=== PATIENT | female | born 1950 | race Hispanic/Latino ===

== ENCOUNTER → 2017-12-07 | Outpatient (CLI) | payer MEDICARE ==
[~2017-12-07] MED LIST: AEC81 PO; AMLO5TAB2 PO; CILO100T PO; GABA-531 PO; GLIM4TAB3 PO; HYDR25TA PO; METF500T6 PO; METO25TA6 PO; SIMV20TA6 PO; TELM80TA7 PO
== END | disposition home or self-care (01) ==
LOC: SHCH 13:07
PROVIDERS: ATTEND Internal Medicine Cardiovascular Disease
DX: I10 Essential (primary) hypertension (principal); R01.1 Cardiac murmur, unspecified
CPT/HCPCS: 93306

== ENCOUNTER → 2017-12-10 | Outpatient (CLI) | payer MEDICARE ==
[~2017-12-10] MED LIST changes: +REGADENOSON 0.4 MG/5 ML PF SYG IVP SCH
== END | disposition home or self-care (01) ==
LOC: EDUNIT# 08:30 → SHCH 08:43
PROVIDERS: ATTEND Internal Medicine Cardiovascular Disease
DX: I10 Essential (primary) hypertension (principal)
CPT/HCPCS: 78452; 93017; 96374; A9500 ×2; J2785

== ENCOUNTER 2018-01-10 06:43 | Day surgery (SDC) | payer MEDICARE ==
[2018-01-08 16:29] LABS: APPEARANCE,URINE Clear (CLEAR); BASOPHILS % (AUTO) 0.8 % (0.0-5.0); BILIRUBIN,URINE Negative (NEGATIVE); COLOR,URINE Yellow (YELLOW); EOSINOPHILS % (AUTO) 5.3 % (0.0-8.0); GLUCOSE, URINE (UA) >=1000 mg/dL (NEGATIVE); HEMATOCRIT 34.7 % (36-48); KETONES,URINE Negative (NEGATIVE); LEUKOCYTE ESTERASE ,URINE Small (NEGATIVE); MEAN CORPUSCULAR HEMOGLOBIN 31.8 pg (27.0-33.0); MEAN CORPUSCULAR HGB CONC 34.3 g/dL (32.0-36.0); MEAN CORPUSCULAR VOLUME 92.6 fL (79-99); MONOCYTES % (AUTO) 7.9 % (3.0-13.0); NITRATE,URINE Negative (NEGATIVE); OCCULT BLOOD,URINE Negative (NEGATIVE); PH,URINE 6.5 (5.0-8.0); PLATELET COUNT (AUTO) 235 K/uL (130-400); PROTEIN,URINE Negative (NEGATIVE); RED BLOOD CELL COUNT(AUTO) 3.74 MIL/uL (4.00-5.50); RED CELL DISTRIBUTION WIDTH 12.7 % (11.0-15.5); WHITE BLOOD COUNT (AUTO) 7.8 K/uL (4.8-10.8)
[2018-01-08 16:31] VITALS: BP 182/77
[2018-01-08 16:35] LABS: RBC,URINE 0-1 /HPF (0-1)
[2018-01-08 16:37] LABS: BACTERIA,URINE Few /HPF (None Seen); SQUAMOUS EPITHELIAL CELL,UR Few /HPF (0-2)
[2018-01-08 16:42] LABS: CREATININE 0.9 mg/dL (0.5-1.5)
[2018-01-08 16:53] LABS: INR 0.91 (0.85-1.15); PARTIAL THROMBOPLASTIN TIME 25.7 SEC (26.3-35.5); PROTHROMBIN TIME 9.6 SEC (9.6-11.6)
[2018-01-10] VITALS (13 sets, daily range): BP systolic 108–184; BP diastolic 48–88
[~2018-01-10] VITALS: Ht 149.9 cm; Wt 67.9 kg
[~2018-01-10 06:43] MED LIST changes: +ACETAMINOPHEN 325 MG TAB PO PRN; -HYDR25TA PO; -REGADENOSON 0.4 MG/5 ML PF SYG IVP SCH; +SODIUM CHLORIDE 0.9% 500ML 500 ML IV SCH
[2018-01-10] MEDS ORDERED: ISOVUE-370 50ML VIAL IV ONE (07:08)
[2018-01-10] MEDS ORDERED: HEPARIN SODIUM 1000UNIT/ML 10ML VIAL ONE (07:08)
[2018-01-10] MEDS ORDERED: NITROGLYCERIN 5 MG/ML 10 ML VIAL IV ONE (07:08)
[2018-01-10] MEDS ORDERED: IOPAMIDOL-370 75 ML VIAL IV ONE ×2 (07:08→08:04)
[2018-01-10] MEDS ORDERED: LIDOCAINE HCL 2% 20ML ONE (07:08)
[2018-01-10] MEDS ORDERED: SODIUM BICARB 50MEQ 50ML VIAL ONE (07:08)
[2018-01-10] MEDS ORDERED: MEPERIDINE-PF 25 MG/ML SYG ONE (07:26)
[2018-01-10] MEDS ORDERED: MIDAZOLAM HCL 1 MG/ML 2ML VIAL ONE (07:27)
[2018-01-10] MEDS ORDERED: SODIUM CHLORIDE 0.9% 1000ML 1,000 ML IV ONE (07:27)
[2018-01-10] MEDS ORDERED: SODIUM CHLORIDE 0.9% 1000ML 1,000 ML IV SCH (08:05)
[2018-01-10] MEDS ORDERED: GLUCAGON 1MG KIT 1 MG ML IM PRN (08:15)
[2018-01-10] MEDS ORDERED: DEXTROSE 50%-WATER 50 ML DISP.SYRIN IV PRN (08:15)
[2018-01-10] MEDS ORDERED: INSULIN HUMULIN R 100 UNIT/ML 3ML ONE (09:02)
[2018-01-10] MEDS ORDERED: INSULIN HUMULIN R 100 UNIT/ML 3ML SQ SCH (11:30)
[2018-01-14] MEDS ORDERED: HYDR25TA PO (14:52)
== END 2018-01-10 14:15 | disposition home or self-care (01) ==
LOC: DAH 06:43
PROVIDERS: ATTEND Internal Medicine Cardiovascular Disease
DX: I25.118 Atherosclerotic heart disease of native coronary artery with other forms of angina pectoris (principal); I99.8 Other disorder of circulatory system; Z79.899 Other long term (current) drug therapy; I10 Essential (primary) hypertension; E78.5 Hyperlipidemia, unspecified; E66.9 Obesity, unspecified; Z82.49 Family history of ischemic heart disease and other diseases of the circulatory system; E11.40 Type 2 diabetes mellitus with diabetic neuropathy, unspecified; Z98.51 Tubal ligation status; Z68.30 Body mass index [BMI] 30.0-30.9, adult
CPT/HCPCS: 36415; 71045; 80048; 81001; 82948 ×2; 85025; 85610; 85730; 93005; 93458; A4606; C1760; C1894; J1644; J1815; J2175; J2250; J3490 ×3; J7030; Q9967 ×3; 99156; 99157

== ENCOUNTER 2018-01-31 10:31 | Emergency (ER) | payer MEDICARE ==
[~2018-01-31 10:31] MED LIST changes: -ACETAMINOPHEN 325 MG TAB PO PRN; -CILO100T PO; -GABA-531 PO; +HYDR25TA PO; -SODIUM CHLORIDE 0.9% 500ML 500 ML IV SCH
[2018-01-31 11:13] LABS: BASOPHILS % (AUTO) 0.8 % (0.0-5.0); EOSINOPHILS % (AUTO) 2.9 % (0.0-8.0); HEMATOCRIT 28.1 % (36-48); LYMPHOCYTES % (AUTO) 18.4 % (21.0-51.0); MEAN CORPUSCULAR HEMOGLOBIN 32.6 pg (27.0-33.0); MEAN CORPUSCULAR HGB CONC 35.6 g/dL (32.0-36.0); MEAN CORPUSCULAR VOLUME 91.6 fL (79-99); MONOCYTES % (AUTO) 7.9 % (3.0-13.0); PLATELET COUNT (AUTO) 422 K/uL (130-400); RED BLOOD CELL COUNT(AUTO) 3.07 MIL/uL (4.00-5.50); RED CELL DISTRIBUTION WIDTH 13.1 % (11.0-15.5); WHITE BLOOD COUNT (AUTO) 10.1 K/uL (4.8-10.8)
[2018-01-31 11:19] LABS: CREATININE 0.8 mg/dL (0.5-1.5); POTASSIUM 3.9 mmol/L (3.5-5.1)
[2018-01-31 11:25] LABS: ALBUMIN 2.9 g/dL (3.5-5.0); BILIRUBIN,TOTAL 0.3 mg/dL (0.2-1.0); TOTAL PROTEIN, SERUM 7.5 g/dL (6.0-8.3)
[2018-01-31] MEDS ORDERED: INSULIN HUMULIN R 100 UNIT/ML 3ML ONE (11:45)
== END 2018-01-31 13:06 | disposition home or self-care (01) ==
LOC: EDH 10:31
DX: I97.89 Other postprocedural complications and disorders of the circulatory system, not elsewhere classified (principal); E78.5 Hyperlipidemia, unspecified; I10 Essential (primary) hypertension; E11.9 Type 2 diabetes mellitus without complications; Z98.890 Other specified postprocedural states
CPT/HCPCS: 36415; 71045; 80053; 82550; 84484; 85025; 87040 ×2; 93005; 96374; 99285; J1815

== ENCOUNTER 2018-08-15 15:01 | Emergency (ER) | payer MEDICARE ==
[2018-08-15] MEDS ORDERED: CLONIDINE HCL 0.1 MG TABLET ONE (15:33)
== END 2018-08-15 16:38 | disposition home or self-care (01) ==
LOC: EDH 15:01
DX: I10 Essential (primary) hypertension (principal); E11.9 Type 2 diabetes mellitus without complications; E78.5 Hyperlipidemia, unspecified; Z79.4 Long term (current) use of insulin
CPT/HCPCS: 93005

== ENCOUNTER → 2018-08-15 | Outpatient (CLI) | payer MEDICARE ==
[~2018-08-15] MED LIST changes: -AMLO5TAB2 PO; +AMLO5TAB9 PO; +METF-444 PO; -METF500T6 PO; +TELM80TA10 PO; -TELM80TA7 PO
== END | disposition home or self-care (01) ==
LOC: RAH 13:37
PROVIDERS: ATTEND Internal Medicine Cardiovascular Disease
DX: I73.9 Peripheral vascular disease, unspecified (principal); I25.10 Atherosclerotic heart disease of native coronary artery without angina pectoris; I48.91 Unspecified atrial fibrillation; R06.02 Shortness of breath
CPT/HCPCS: 93922; 93970

== ENCOUNTER → 2018-09-09 | Outpatient (CLI) | payer MEDICARE ==
[~2018-09-09] MED LIST changes: +IOHEXOL 350 MG/ML 100ML INFUS..BTL IV ONE; +IOHEXOL-350 50ML VIAL IV ONE
== END | disposition home or self-care (01) ==
LOC: RAH 08:57
PROVIDERS: ATTEND Internal Medicine Cardiovascular Disease
DX: I70.213 Atherosclerosis of native arteries of extremities with intermittent claudication, bilateral legs (principal)
CPT/HCPCS: 75635; Q9967 ×2

== ENCOUNTER → 2022-09-05 | Outpatient (CLI) | payer OTHER, MEDICARE ==
[~2022-09-05] MED LIST changes: +AMLO-257 PO; -AMLO5TAB9 PO; -GLIM4TAB3 PO; +GLIM4TAB36 PO; -IOHEXOL 350 MG/ML 100ML INFUS..BTL IV ONE; -IOHEXOL-350 50ML VIAL IV ONE; +REGADENOSON 0.4 MG/5 ML PF SYG IVP SCH; +SIMV-43 PO; -SIMV20TA6 PO
== END | disposition home or self-care (01) ==
LOC: SHCH 08:37
PROVIDERS: ATTEND Internal Medicine Cardiovascular Disease
DX: R94.31 Abnormal electrocardiogram [ECG] [EKG] (principal); I25.10 Atherosclerotic heart disease of native coronary artery without angina pectoris; I10 Essential (primary) hypertension; Z79.899 Other long term (current) drug therapy
CPT/HCPCS: 78452; 96374; 93017; J2785; A9500 ×2

== ENCOUNTER → 2024-04-09 | Outpatient (CLI) | payer MEDICARE ==
[~2024-04-09] MED LIST changes: +CLON1PAT12 TD; -REGADENOSON 0.4 MG/5 ML PF SYG IVP SCH
== END | disposition home or self-care (01) ==
LOC: SHCH 08:58
PROVIDERS: ATTEND Internal Medicine Cardiovascular Disease
DX: I70.293 Other atherosclerosis of native arteries of extremities, bilateral legs (principal); M79.661 Pain in right lower leg
CPT/HCPCS: 93925; 93970

== ENCOUNTER → 2024-04-30 | Outpatient (CLI) | payer MEDICARE ==
[~2024-04-30] MED LIST changes: -AEC81 PO; -AMLO-257 PO; +AMLO5TAB4 PO; +AMOX1TAB16 PO; +ATOR40TA69 PO; -CLON1PAT12 TD; +CLOP-31 PO; +DOXY100C5 PO; -HYDR25TA PO; -METO25TA6 PO; +METO50 PO; +RIVA20TA PO; -SIMV-43 PO; -TELM80TA10 PO
== END | disposition home or self-care (01) ==
LOC: SHCH 09:02
PROVIDERS: ATTEND Internal Medicine Cardiovascular Disease
DX: I87.2 Venous insufficiency (chronic) (peripheral) (principal); I73.9 Peripheral vascular disease, unspecified
CPT/HCPCS: 93925; 93971

== ENCOUNTER 2024-05-14 12:11 | Inpatient (IN) | payer MEDICARE ==
[~2024-05-14] VITALS: Ht 149.9 cm; Wt 59.9 kg
[2024-05-14 13:41] LABS: BASOPHILS # (AUTO) 0.03 K/uL (0.00-0.20); BASOPHILS % (AUTO) 0.5 % (0.0-5.0); EOSINOPHILS # (AUTO) 0.33 K/uL (0.00-0.70); HEMATOCRIT 26.7 % (36-48); IMMATURE GRANULOCYTE ABSOLUTE 0.01 K/uL (0-1); LYMPHOCYTES # (AUTO) 1.5 K/uL (1.0-4.8); LYMPHOCYTES % (AUTO) 23.1 % (21.0-51.0); MEAN CORPUSCULAR HEMOGLOBIN 30.3 pg (27.0-33.0); MEAN CORPUSCULAR HGB CONC 32.6 g/dL (32.0-36.0); MONOCYTES # (AUTO) 0.6 K/uL (0.1-1.0); MONOCYTES % (AUTO) 8.4 % (3.0-13.0); NEUTROPHILS # (AUTO) 4.1 K/uL (1.8-7.7); NEUTROPHILS % (AUTO) 62.8 % (40.0-77.0); PLATELET COUNT (AUTO) 196 K/uL (130-400); RED BLOOD CELL COUNT(AUTO) 2.87 MIL/uL (4.00-5.50); RED CELL DISTRIBUTION WIDTH 12.7 % (11.0-15.5); WHITE BLOOD COUNT (AUTO) 6.6 K/uL (4.8-10.8)
[2024-05-14 13:52] LABS: CREATININE 1.3 mg/dL (0.5-1.0); POTASSIUM 3.8 mmol/L (3.5-5.1)
[2024-05-14] MEDS ORDERED: CLON0.1T PO (14:06)
[2024-05-14] MEDS ORDERED: SITA100T12 PO (14:06)
[2024-05-14] MEDS ORDERED: AMLO-257 PO (14:06)
[2024-05-14] MEDS ORDERED: guaiFENesin-DM 200/20MG 10ML PO PRN (14:30)
[2024-05-14] MEDS ORDERED: doCUSate SODIUM 100 MG CAP PO PRN (14:30)
[2024-05-14] MEDS ORDERED: MAGNESIUM 2GM PREMIX 50ML 50 ML IV PRN (14:30)
[2024-05-14] MEDS ORDERED: ondanSETRON 4MG INJ IV PRN (14:30)
[2024-05-14] MEDS ORDERED: NITROGLYCERIN 0.4 MG SL TAB SL PRN (14:30)
[2024-05-14] MEDS ORDERED: LACTULOSE 20 GM/30 ML UDCUP PO PRN (14:30)
[2024-05-14] MEDS ORDERED: acetaMINOPHEN 325 MG TAB PO PRN (14:30)
[2024-05-14] MEDS ORDERED: PoTASSium chloRIDE 20MEQ/100ML 100 ML IV PRN ×2 (14:30)
[2024-05-14] MEDS ORDERED: PoTASSium chl 10% ELIXIR 20MEQ 20 MEQ/15 ML UDCUP PO PRN (14:30)
[2024-05-14] MEDS ORDERED: guaiFENesin SUGAR-FREE 100 MG/5 ML UDCUP PO PRN (14:30)
[2024-05-14] MEDS ORDERED: HEParin 25,000 UNITS/250ML D5W 250 ML IV SCH (14:30)
[2024-05-14] MEDS ORDERED: polyETHYLene GLYCol 3350 17 GM POWD.PACK PO PRN (14:30)
[2024-05-14 14:32] LABS: INR 1.05 (0.85-1.15); PROTHROMBIN TIME 11.3 SEC (9.6-11.6)
[2024-05-14 14:33] LABS: PARTIAL THROMBOPLASTIN TIME 26.8 SEC (26.3-35.5)
[2024-05-14] MEDS ORDERED: IOHEXOL-350 50ML VIAL IV ONE (16:23)
[2024-05-14] MEDS ORDERED: IOHEXOL 350 MG/ML 100ML INFUS..BTL IV ONE (16:23)
[2024-05-14] MEDS: 0.9%NACL 1000ML 1,000 ML IV SCH (17:13)
[2024-05-14 18:15] VITALS: O2SAT 97
[2024-05-14] MEDS: GABApentin 100 MG CAPSULE PO SCH (18:19)
[2024-05-14] MEDS: INSULIN humuLIN R 100 UNIT/ML 3ML SQ SCH (18:34)
[2024-05-14 19:00] VITALS: BP 101/50; PULSE 55; RESP 19; TEMP 97.8
[2024-05-14 20:00] VITALS: O2SAT 97
[2024-05-14] MEDS ORDERED: amLODIPine 5 MG TAB PO SCH (21:00)
[2024-05-14] MEDS: metoPROLOL tartRATE 50 MG TAB PO SCH (21:00)
[2024-05-14] MEDS: GLIMEPIRIDE 2 MG TABLET PO SCH (21:00)
[2024-05-14] MEDS: atorVAStatin 40 MG TABLET PO SCH (21:03)
[2024-05-14] MEDS: FAMOTIDINE 20MG TAB PO SCH (21:07)
[2024-05-14 23:00] VITALS: BP 130/56; PULSE 133; PULSE 57; RESP 18; RESP 56; TEMP 98
[2024-05-15] VITALS (8 sets, daily range): BP systolic 134–165; BP diastolic 41–87; PULSE 58–77; RESP 18–20; TEMP 97.3–98.7; O2SAT 94–97
[2024-05-15 04:42] LABS: BASOPHILS # (AUTO) 0.03 K/uL (0.00-0.20); BASOPHILS % (AUTO) 0.5 % (0.0-5.0); EOSINOPHILS # (AUTO) 0.33 K/uL (0.00-0.70); EOSINOPHILS % (AUTO) 5.9 % (0.0-8.0); HEMATOCRIT 26.7 % (36-48); IMMATURE GRANULOCYTE ABSOLUTE 0.02 K/uL (0-1); LYMPHOCYTES # (AUTO) 1.9 K/uL (1.0-4.8); MEAN CORPUSCULAR HEMOGLOBIN 29.5 pg (27.0-33.0); MEAN CORPUSCULAR HGB CONC 31.5 g/dL (32.0-36.0); MEAN CORPUSCULAR VOLUME 93.7 fL (79-99); MONOCYTES # (AUTO) 0.6 K/uL (0.1-1.0); MONOCYTES % (AUTO) 9.8 % (3.0-13.0); NEUTROPHILS # (AUTO) 2.8 K/uL (1.8-7.7); NEUTROPHILS % (AUTO) 49.4 % (40.0-77.0); PLATELET COUNT (AUTO) 203 K/uL (130-400); RED BLOOD CELL COUNT(AUTO) 2.85 MIL/uL (4.00-5.50); RED CELL DISTRIBUTION WIDTH 12.8 % (11.0-15.5); WHITE BLOOD COUNT (AUTO) 5.6 K/uL (4.8-10.8)
[2024-05-15 05:05] LABS: MAGNESIUM 1.8 mg/dL (1.80-2.40); POTASSIUM 3.6 mmol/L (3.5-5.1)
[2024-05-15 05:37] LABS: B-TYPE NATRIURETIC PEPTIDE 693 pg/mL (0-100)
[2024-05-15] MEDS: amLODIPine 5 MG TAB PO SCH (08:23)
[2024-05-15] MEDS: cloPIDOgrel 75MG TAB PO SCH (08:25)
[2024-05-15 15:10] LABS: PROTHROMBIN TIME 10.8 SEC (9.6-11.6)
[2024-05-15 15:11] LABS: PARTIAL THROMBOPLASTIN TIME 27.9 SEC (26.3-35.5)
[2024-05-15] MEDS ORDERED: HEParin 5,000 UNIT VIAL IV SCH (16:00)
[2024-05-15] MEDS ORDERED: HEParin 5,000 UNIT VIAL IV PRN (16:00)
[2024-05-15] MEDS: HEParin 5,000 UNIT VIAL IV PRN (16:11)
[2024-05-15] MEDS: HEParin 25,000 UNITS/250ML D5W 250 ML IV SCH (16:14)
[2024-05-15] MEDS: hydrALAZine 25MG TABLET PO PRN (22:27)
[2024-05-16] VITALS (13 sets, daily range): BP systolic 91–155; BP diastolic 55–70; PULSE 62–77; RESP 16–20; TEMP 97.8–98.4; O2SAT 100
[2024-05-16 04:37] LABS: HEMATOCRIT 28.9 % (36-48); MEAN CORPUSCULAR HEMOGLOBIN 29.8 pg (27.0-33.0); MEAN CORPUSCULAR HGB CONC 31.5 g/dL (32.0-36.0); MEAN CORPUSCULAR VOLUME 94.8 fL (79-99); RED BLOOD CELL COUNT(AUTO) 3.05 MIL/uL (4.00-5.50)
[2024-05-16 04:48] LABS: POTASSIUM 3.7 mmol/L (3.5-5.1)
[2024-05-16] MEDS: furoSEMIDE 20MG VIAL IV ONE (09:03)
[2024-05-16] MEDS: RIVAROXABAN 2.5 MG TABLET PO SCH (09:13)
[2024-05-16] MEDS: LoSARTan 50 MG TABLET PO SCH (09:13)
[2024-05-16] MEDS: CILOstazol 100 MG TAB PO SCH (09:15)
[2024-05-16] MEDS ORDERED: HEParin 10,000 UNIT/10ML (1,000 UNIT/ML) VIAL ONE (13:24)
[2024-05-16] MEDS ORDERED: LIDOCAINE HCL 400MG/20ML VIAL ONE (13:24)
[2024-05-16] MEDS ORDERED: IODIXANOL 320 MG/ML 100 ML VIAL ONE (13:24)
[2024-05-16] MEDS ORDERED: HEParin-NS 1,000 UNIT/500 ML 1,000 ML IV ONE (13:24)
[2024-05-16] MEDS ORDERED: NITROGLYCERIN 50MG VIAL ONE (13:25)
[2024-05-16] MEDS ORDERED: SODIUM BICARB 50MEQ 50ML VIAL 50 ML ONE (13:27)
[2024-05-16] MEDS ORDERED: MIDAZOLAM HCL 1 MG/ML 2ML VIAL ONE ×3 (14:02→15:44)
[2024-05-16] MEDS ORDERED: MEPERIDINE-PF 25 MG/ML SYG ONE ×3 (14:02→15:44)
[2024-05-16] MEDS ORDERED: DOPamine HCL 400 MG/D5%-WATER 0 ML IV ONE (14:44)
[2024-05-16] MEDS ORDERED: HEParin-NS 1,000 UNIT/500 ML 500 ML IV ONE (14:57)
[2024-05-16] MEDS: furoSEMIDE 20MG VIAL IV SCH (17:58)
[2024-05-17] VITALS (8 sets, daily range): BP systolic 134–158; BP diastolic 56–84; PULSE 66–99; RESP 18; TEMP 98.1–98.2; O2SAT 91–96
[2024-05-17 06:14] LABS: BASOPHILS # (AUTO) 0.03 K/uL (0.00-0.20); BASOPHILS % (AUTO) 0.3 % (0.0-5.0); EOSINOPHILS # (AUTO) 0.06 K/uL (0.00-0.70); EOSINOPHILS % (AUTO) 0.7 % (0.0-8.0); HEMATOCRIT 29.2 % (36-48); IMMATURE GRANULOCYTE ABSOLUTE 0.02 K/uL (0-1); LYMPHOCYTES # (AUTO) 1.4 K/uL (1.0-4.8); LYMPHOCYTES % (AUTO) 15.5 % (21.0-51.0); MEAN CORPUSCULAR HEMOGLOBIN 30.3 pg (27.0-33.0); MEAN CORPUSCULAR HGB CONC 32.2 g/dL (32.0-36.0); MEAN CORPUSCULAR VOLUME 94.2 fL (79-99); MONOCYTES # (AUTO) 0.8 K/uL (0.1-1.0); MONOCYTES % (AUTO) 8.9 % (3.0-13.0); NEUTROPHILS # (AUTO) 6.8 K/uL (1.8-7.7); NEUTROPHILS % (AUTO) 74.4 % (40.0-77.0); PLATELET COUNT (AUTO) 250 K/uL (130-400); RED CELL DISTRIBUTION WIDTH 12.8 % (11.0-15.5); WHITE BLOOD COUNT (AUTO) 9.1 K/uL (4.8-10.8)
[2024-05-17 06:42] LABS: ALBUMIN 3.2 g/dL (3.5-5.0); CREATININE 1.2 mg/dL (0.5-1.0); POTASSIUM 3.3 mmol/L (3.5-5.1); TOTAL PROTEIN, SERUM 7.7 g/dL (6.0-8.3)
[2024-05-17 07:21] LABS: B-TYPE NATRIURETIC PEPTIDE 650 pg/mL (0-100)
[2024-05-17] MEDS: PoTASSium chloRIDE 20MEQ ER 20 MEQ ERTAB PO PRN (08:31)
[2024-05-17] MEDS: 0.9%NACL 1000ML 1,000 ML IV SCH (12:49)
[2024-05-17] MEDS: acetaMINOPHEN 325 MG TAB PO PRN (16:22)
[2024-05-18 04:04] VITALS: BP 135/60; PULSE 76; RESP 18; TEMP 99.1
[2024-05-18 08:01] VITALS: BP 151/73; PULSE 87; RESP 18; TEMP 98
[2024-05-18] MEDS: ASPIRIN 81 MG EC TAB PO SCH (08:40)
[2024-05-18 08:41] VITALS: O2SAT 92
[2024-05-18] MEDS ORDERED: PANT40TA55 PO (10:45)
[2024-05-18] MEDS ORDERED: AEC81 PO (10:45)
[2024-05-18] MEDS ORDERED: LOSA-418 PO (10:45)
[2024-05-18] MEDS ORDERED: RIVA2.5T PO (10:45)
[2024-05-18 11:26] VITALS: BP_SYST 75; PULSE 76; RESP 18; TEMP 98.2
== END 2024-05-18 11:50 | disposition home or self-care (01) | DRG 252 ==
LOC: EDH 12:11 → EDHIP 14:04 → OBSVTOIN 14:04 → 3AH 18:15
PROVIDERS: ADMIT Internal Medicine Critical Care Medicine; ATTEND Internal Medicine Critical Care Medicine
PROC: 047N3D1 Dilation of Left Popliteal Artery with Intraluminal Device, using Drug-Coated Balloon, Percutaneous Approach (ICD-10-PCS; principal; 2024-05-16)
PROC: 047U3D1 Dilation of Left Peroneal Artery with Intraluminal Device, using Drug-Coated Balloon, Percutaneous Approach (ICD-10-PCS; 2024-05-16)
PROC: B41G1ZZ Fluoroscopy of Left Lower Extremity Arteries using Low Osmolar Contrast (ICD-10-PCS; 2024-05-16)
PROC: B41F1ZZ Fluoroscopy of Right Lower Extremity Arteries using Low Osmolar Contrast (ICD-10-PCS; 2024-05-16)
DX: E11.51 Type 2 diabetes mellitus with diabetic peripheral angiopathy without gangrene (principal); I50.33 Acute on chronic diastolic (congestive) heart failure; K55.069 Acute infarction of intestine, part and extent unspecified; I13.0 Hypertensive heart and chronic kidney disease with heart failure and stage 1 through stage 4 chronic kidney disease, or unspecified chronic kidney disease; I70.222 Atherosclerosis of native arteries of extremities with rest pain, left leg; Z77.22 Contact with and (suspected) exposure to environmental tobacco smoke (acute) (chronic); E78.00 Pure hypercholesterolemia, unspecified; E11.22 Type 2 diabetes mellitus with diabetic chronic kidney disease; N18.30 Chronic kidney disease, stage 3 unspecified; E11.65 Type 2 diabetes mellitus with hyperglycemia; I25.10 Atherosclerotic heart disease of native coronary artery without angina pectoris; E66.9 Obesity, unspecified; E11.40 Type 2 diabetes mellitus with diabetic neuropathy, unspecified; I72.4 Aneurysm of artery of lower extremity; Z95.1 Presence of aortocoronary bypass graft; Z82.49 Family history of ischemic heart disease and other diseases of the circulatory system; Z79.84 Long term (current) use of oral hypoglycemic drugs; Z79.82 Long term (current) use of aspirin; Z79.01 Long term (current) use of anticoagulants
CPT/HCPCS: 36415; 37226; 37230; 71045; 75635; 75716; 80048; 80053; 82550; 82948; 83605; 83735; 83880; 84145; 84484; 85025; 85027; 85610; 85730; 93005; 93306; 93925; 93970; 99156; 99157; C1769; C1893; C1894; G0378; J1265; J1644; J1815; J1940; J2175; J2250; J3490; J7030; Q9967; C1725; C1760; C1874; C1887; C2623